=== PATIENT | female | born 1985 | race Caucasian/White ===

== ENCOUNTER → 2017-02-20 | Outpatient (CLI) | payer BC ==
[~2017-02-20] MED LIST: AFRI0.052 EACH NARE; VITA10007 PO
--- NOTE | 2017-02-20 22:08 | EKG ---
Date Performed: 02/20/2017 Time Performed: 12:37:44 PTAGE: 31 years EKG: Sinus rhythm WITH SINUS ARRHYTHMIA POSSIBLE LEFT ATRIAL ENLARGEMENT BORDERLINE ECG PREVIOUS TRACING : 11/30/2014 10.41 Compared to prior tracing no significant change DOCTOR: Adam Saha Interpretating Date/Time 02/20/2017 22:07:16
== END ==
LOC: HCAV 12:18
PROVIDERS: ATTEND Surgery
DX: Z01.810 Encounter for preprocedural cardiovascular examination (principal)
CPT/HCPCS: 93005

== ENCOUNTER 2017-05-16 05:49 | Inpatient (IN) | payer BC ==
[~2017-05-16] VITALS: Ht 165.1 cm; Wt 113.5 kg
[~2017-05-16 05:49] MED LIST changes: +FEXO15TA PO; -VITA10007 PO
[2017-05-16] MEDS ORDERED: LACTATED RINGER'S 1000 ML IV PRN (06:15)
[2017-05-16] MEDS ORDERED: ACETAMINOPHEN 1000 MG/100 ML 100 ML IV SCH ×2 (06:15→12:00)
[2017-05-16] MEDS ORDERED: POVIDONE IODINE 5% (ANTISEPSIS KIT) 4 APPLICATIONS EACH NARE PRN (06:15)
[2017-05-16] MEDS ORDERED: METOPROLOL TARTRATE 25 MG TAB PO PRN (06:15)
[2017-05-16] MEDS ORDERED: APREPITANT 40 MG CAP PO SCH (06:15)
[2017-05-16] MEDS ORDERED: ceFAZolin 2 GM PREMIX 50 ML IV SCH (06:15)
[2017-05-16] MEDS ORDERED: SODIUM CHLORID 0.9% 500 ML IV PRN (06:15)
[2017-05-16] MEDS ORDERED: CHLORHEXIDINE GLUCONATE 2 % 1 PACK (2 CLOTHS) TOPICAL PRN (06:15)
[2017-05-16] MEDS ORDERED: SCOPOLAMINE 1.5 MG PATCH T-DERMAL SCH (06:15)
[2017-05-16] MEDS: ONDANSETRON HCL 4 MG/2 ML VIAL IV PUSH SCH ×2 (06:48→15:34)
[2017-05-16] MEDS ORDERED: BUPIVACAINE/EPINEPHRINE 0.25% 50 ML VIAL ONE (07:17)
[2017-05-16] MEDS ORDERED: metroNIDAZOLE 500 MG INJ 100 ML IV ONE (07:50)
[2017-05-16] MEDS ORDERED: METHYLENE BLUE 100 MG/10 ML VIAL OTHER ONE (09:00)
--- NOTE | 2017-05-16 09:24 | HHI.PR ---
Immediate Post Op Note Procedure Date: May 16, 2017 Pre Op Diagnosis: morbid obesity bmi 44, preDM Post Op Diagnosis: same Surgeon: Lemuel Garnett MD Clearing Hand(s): Dr. Stephens Procedure: lap vertical sleeve gastrectomy Findings: no leak with methylene blue Complications: none Specimen(s) removed: none Estimated blood loss: 5cc Anesthesia: General Drains: None Patient to: PACU Patient Condition: Good Lemuel Garnett MD May 16, 2017 09:24
[2017-05-16] MEDS ORDERED: ONDANSETRON HCL 4 MG/2 ML VIAL IV PUSH PRN (09:30)
[2017-05-16] MEDS ORDERED: NALOXONE HCL 0.4 MG/ML AMP IV PUSH PRN (09:30)
[2017-05-16] MEDS ORDERED: Post-op Orders (for Pharmacy) OTHER ONE (09:30)
[2017-05-16] MEDS ORDERED: ACETAMINOPHEN 325MG/HYDROcodone 7.5MG/15ML UDC PO PRN (09:30)
[2017-05-16] MEDS ORDERED: SODIUM CHLORIDE 0.9% FLUSH 10 ML FLUSH IV FLUSH PRN (09:30)
[2017-05-16] MEDS ORDERED: ENALAPRILAT 1.25 MG/ML VIAL IV PUSH PRN (09:30)
[2017-05-16] MEDS ORDERED: DO NOT ADM ANY ANTICOAGULANT DRUGS PRN (09:33)
[2017-05-16] MEDS ORDERED: MIDAZOLAM HCL 2 MG/2 ML VIAL ONE (09:40)
[2017-05-16] MEDS ORDERED: SUGAMMADEX SODIUM 200 MG/2 ML VIAL IV PUSH ONE (09:41)
[2017-05-16] MEDS ORDERED: *morphine SULFATE 4 MG/ML PERIprocedure ONLY ONE ×2 (10:24→10:54)
[2017-05-16] MEDS: D5-1/2 NS + KCL 20 MEQ INJ 1,000 ML IV SCH ×2 (11:30→19:53)
[2017-05-16] MEDS ORDERED: diphenhydrAMINE HCL ELIXIR 12.5 MG/5 ML CUP PO PRN (11:30)
[2017-05-16] MEDS: PANTOPRAZOLE SOD 40 MG DELAYED RELEASE TAB PO SCH (11:30)
[2017-05-16] MEDS ORDERED: diphenhydrAMINE HCL 50 MG/ML VIAL IV PUSH PRN (11:30)
[2017-05-16] MEDS ORDERED: ONDANSETRON HCL 4 MG/2 ML VIAL IV PUSH ONE (12:00)
[2017-05-16] MEDS ORDERED: PROPOFOL 200 MG/20 ML AMP IV ONE (12:00)
[2017-05-16] MEDS ORDERED: LACTATED RINGER'S 1000 ML INJ 1,000 ML IV ONE (12:00)
[2017-05-16] MEDS ORDERED: DEXAMETHASONE SOD PHOS 4 MG/ML VIAL IV ONE (12:00)
[2017-05-16] MEDS ORDERED: ROCURONIUM INJ 50 MG/5 ML SYRINGE IV PUSH ONE (12:00)
[2017-05-16] MEDS ORDERED: LIDOCAINE HCL 1% PF 5 ML SYRINGE OTHER ONE (12:00)
[2017-05-16] MEDS: ACETAMINOPHEN 1000 MG/100 ML 100 ML IV SCH ×2 (12:48→18:16)
[2017-05-16] MEDS: MORPHINE SULFATE 30 MG/30 ML PCA IV SCH (12:50)
[2017-05-16 13:00] VITALS: BP 132/66; PULSE 72; RESP 17; TEMP 98.4; O2SAT 98
[2017-05-16] MEDS: PCA - TOTAL MG MORPHINE DELIVERED PER SHIFT SCH ×2 (14:00→21:47)
[2017-05-16] MEDS: ENOXAPARIN SODIUM 40 MG/0.4 ML SYRINGE SQ SCH (14:11)
[2017-05-16 16:00] VITALS: BP 116/58; PULSE 80; RESP 18; TEMP 98; O2SAT 97
[2017-05-16] MEDS: METOCLOPRAMIDE HCL 10 MG/2 ML VIAL IV PUSH SCH ×2 (16:00→21:47)
[2017-05-16] MEDS: SODIUM CHLORIDE 0.9% FLUSH 10 ML FLUSH IV FLUSH SCH (19:36)
[2017-05-16 20:00] VITALS: BP 113/58; PULSE 77; RESP 18; TEMP 98; O2SAT 96
[2017-05-17] VITALS: BP 101/52; PULSE 64; RESP 18; TEMP 98.2; O2SAT 96
[2017-05-17] MEDS: metroNIDAZOLE 500 MG INJ 100 ML IV SCH ×2 (00:08→08:08)
[2017-05-17] MEDS: ACETAMINOPHEN 1000 MG/100 ML 100 ML IV SCH ×2 (01:55→05:55)
[2017-05-17] MEDS: MORPHINE SULFATE 30 MG/30 ML PCA IV SCH (03:25)
[2017-05-17 04:00] VITALS: BP 104/54; PULSE 67; RESP 20; TEMP 98.7; O2SAT 97
[2017-05-17] MEDS: METOCLOPRAMIDE HCL 10 MG/2 ML VIAL IV PUSH SCH ×2 (04:28→09:13)
[2017-05-17] MEDS: D5-1/2 NS + KCL 20 MEQ INJ 1,000 ML IV SCH ×3 (05:54→19:30)
[2017-05-17] MEDS: PCA - TOTAL MG MORPHINE DELIVERED PER SHIFT SCH ×2 (05:57→14:00)
[2017-05-17 08:00] VITALS: BP 124/64; PULSE 73; RESP 19; TEMP 97.3; O2SAT 98
[2017-05-17] MEDS: PANTOPRAZOLE SOD 40 MG DELAYED RELEASE TAB PO SCH (08:07)
[2017-05-17] MEDS: SODIUM CHLORIDE 0.9% FLUSH 10 ML FLUSH IV FLUSH SCH ×2 (08:08→21:00)
[2017-05-17 08:42] LABS: AUTOMATED NEUTROPHIL # 7.4 TH/MM3 (1.8-7.7); BASOPHIL % 0.3 % (0.0-2.0); EOSINOPHIL % 0.2 % (0.0-4.0); HEMATOCRIT 37.5 % (35.0-46.0); HEMOGLOBIN 12.6 GM/DL (11.6-15.3); LYMPH % 18.9 % (9.0-44.0); LYMPHOCYTE # 1.9 TH/MM3 (1.0-4.8); MEAN CELL VOLUME 89.2 FL (80.0-100.0); MEAN CORPUSCULAR HGB CONC 33.7 % (32.0-36.0); MEAN PLATELET VOLUME 9.8 FL (7.0-11.0); MONO % 8.3 % (0.0-8.0); MONOCYTE # 0.8 TH/MM3 (0-0.9); NEUT % 72.3 % (16.0-70.0); PLATELET COUNT 186 TH/MM3 (150-450); RED CELL DISTRIBUTION WIDTH 12.8 % (11.6-17.2); WHITE BLOOD COUNT 10.2 TH/MM3 (4.0-11.0)
[2017-05-17 09:02] LABS: CREATININE 0.76 MG/DL (0.50-1.00); MAGNESIUM 2.2 MG/DL (1.5-2.5)
[2017-05-17] MEDS ORDERED: INFLUENZA VIRUS VACCINE (QUADRIVALENT) 0.5 ML SYR IM ONE (10:00)
[2017-05-17 12:00] VITALS: BP 127/69; PULSE 69; RESP 21; TEMP 98.4; O2SAT 99
[2017-05-17] MEDS ORDERED: HYOSCYAMINE SOLN 0.125 MG/ML 15 ML BTL PO PRN (12:00)
--- NOTE | 2017-05-17 12:11 | HHI.PR ---
Subjective Subjective Notes No GI complaints Tolerating PO fluids Pain well controlled Objective Vitals/I&O Vital Signs Date Time Temp Pulse Resp B/P (MAP) Pulse Ox O2 Delivery O2 Flow Rate FiO2 05/17/17 08:00 97.3 73 19 124/64 (84) 98 05/16/17 12:30 Nasal Cannula 2 Labs Laboratory Tests Test 05/17/17 06:00 White Blood Count 10.2 Red Blood Count 4.20 Hemoglobin 12.6 Hematocrit 37.5 Mean Corpuscular Volume 89.2 Mean Corpuscular Hemoglobin 30.0 Mean Corpuscular Hemoglobin Concent 33.7 Red Cell Distribution Width 12.8 Platelet Count 186 Mean Platelet Volume 9.8 Neutrophils (%) (Auto) 72.3 Lymphocytes (%) (Auto) 18.9 Monocytes (%) (Auto) 8.3 Eosinophils (%) (Auto) 0.2 Basophils (%) (Auto) 0.3 Neutrophils # (Auto) 7.4 Lymphocytes # (Auto) 1.9 Monocytes # (Auto) 0.8 Eosinophils # (Auto) 0.0 Basophils # (Auto) 0.0 CBC Comment DIFF FINAL Differential Comment Blood Urea Nitrogen 7 Creatinine 0.76 Random Glucose 118 Calcium Level 8.0 Magnesium Level 2.2 Sodium Level 139 Potassium Level 3.5 Chloride Level 107 Carbon Dioxide Level 23.0 Anion Gap 9 Estimat Glomerular Filtration Rate 88 Cardiovascular: Regular Lungs: Clear Abdomen: Post-op tenderness Extremities: Perfused Wound Wound : Wound Location: Abdomen Appearance: Clean & Dry A/P Assessment and Plan 31yo F POD#1 laparoscopic VSG -Continue with frequent ambulation -Continue to increase fluids as tolerated Discharge Planning D/C home today Natalia Madrigal May 17, 2017 12:11
[2017-05-17] MEDS: ENOXAPARIN SODIUM 40 MG/0.4 ML SYRINGE SQ SCH (14:14)
[2017-05-17] MEDS: METOCLOPRAMIDE HCL 10 MG/2 ML VIAL IV PUSH PRN ×2 (14:14→20:02)
[2017-05-17] MEDS ORDERED: PROMETHAZINE HCL 25 MG SUPP RECTAL PRN (15:30)
[2017-05-17 16:00] VITALS: BP 130/74; PULSE 73; RESP 19; TEMP 98.7; O2SAT 98
[2017-05-17 20:00] VITALS: BP 133/74; PULSE 80; RESP 18; TEMP 98.6; O2SAT 98
[2017-05-17] MEDS: ACETAMINOPHEN 325MG/HYDROcodone 7.5MG/15ML UDC PO PRN (20:03)
[2017-05-18] VITALS: BP 121/64; PULSE 82; RESP 18; TEMP 98.4; O2SAT 97
[2017-05-18] MEDS: METOCLOPRAMIDE HCL 10 MG/2 ML VIAL IV PUSH PRN (03:26)
[2017-05-18] MEDS: ACETAMINOPHEN 325MG/HYDROcodone 7.5MG/15ML UDC PO PRN (03:27)
[2017-05-18] MEDS: PANTOPRAZOLE SOD 40 MG DELAYED RELEASE TAB PO SCH (07:43)
[2017-05-18] MEDS: SODIUM CHLORIDE 0.9% FLUSH 10 ML FLUSH IV FLUSH SCH (07:43)
[2017-05-18] MEDS: D5-1/2 NS + KCL 20 MEQ INJ 1,000 ML IV SCH (07:45)
[2017-05-18 08:00] VITALS: BP 132/82; PULSE 82; RESP 17; TEMP 97.5; O2SAT 98
[2017-05-18] MEDS ORDERED: IOHEXOL 350 MG/ML 10 ML VIAL (for RAD DIAG) IVCONTRAST ONE (10:35)
--- NOTE | 2017-05-18 10:48 | RADRPT ---
EXAM DATE/TIME: 05/18/2017 10:27 [facility] COMPARISON: No previous studies available for comparison. INDICATIONS : Left dilated pupil, loss of vision IV CONTRAST: 68 cc Omnipaque 350 (iohexol) IV RADIATION DOSE: 37.99 CTDIvol (mGy) MEDICAL HISTORY : Hypertension. diabetes SURGICAL HISTORY : gastric sleeve ENCOUNTER: Initial ACUITY: 1 day PAIN SCALE: 0/10 LOCATION: Left cranial TECHNIQUE: Multiple contiguous axial images were obtained of the head. Using automated exposure control and adj ustment of the mA and/or kV according to patient size, radiation dose was kept as low as reasonably a chievable to obtain optimal diagnostic quality images. DICOM format image data is available electro nically for review and comparison. FINDINGS: CEREBRUM: The ventricles are normal for age. No evidence of midline shift, cerebral edema or blood products. No extra-axial fluid collections are seen. POSTERIOR FOSSA: The cerebellum and brainstem are intact. The 4th ventricle is midline. The cerebellar pontine angle is unremarkable. EXTRACRANIAL: The visualized portion of the orbits is intact. Minimal mucoperiosteal thickening in the ethmoid sinu s air cells and sphenoid sinus. SKULL: The calvaria is intact. No evidence of skull fracture. POST CONTRAST: No abnormal areas of parenchymal or dural enhancement. No evidence of blood-brain barrier breakdown. CONCLUSION: Intracranially negative. Minimal mucoperiosteal thickening sphenoid sinus and ethmoid air cells Real Blackwell MD on May 18, 2017 at 10:44 Board Certified Radiologist. This report was verified electronically.
--- NOTE | 2017-05-18 11:40 | HHI.PR ---
Subjective Subjective Notes Patient was initially going to be discharged then rapidly developed profound dilation of left pupil with loss/blurry vision. She denies headache but does have some lingering nausea. BP is well controlled. CT head was negative. Objective Vitals/I&O Vital Signs Date Time Temp Pulse Resp B/P (MAP) Pulse Ox O2 Delivery O2 Flow Rate FiO2 05/18/17 08:00 97.5 82 17 132/82 (99) 98 05/16/17 12:30 Nasal Cannula 2 Radiology Last Impressions Head CT 05/18/17 0000 Signed Impressions: Service Date/Time: Thursday, May 18, 2017 10:27 - CONCLUSION: Intracranially negative. Minimal mucoperiosteal thickening sphenoid sinus and ethmoid air cells Real Blackwell MD Cardiovascular: Regular Lungs: Clear Abdomen: Post-op tenderness Extremities: Perfused Narrative Exam Left pupil 6mm, right pupil 3mm, EOM intact. A/P Assessment and Plan -31yo F POD#2 laparoscopic VSG -STAT CT neg, STAT MRI and neuro consult -STAT CBC Discharge Planning Depending on hospital course Natalia Madrigal May 18, 2017 11:40
[2017-05-18 12:00] VITALS: BP 126/80; PULSE 75; RESP 17; TEMP 97.6; O2SAT 99
--- NOTE | 2017-05-18 12:00 | MP ---
cc: MARY JO GARNETT MD DATE OF SURGERY: 05/16/2017. PREOPERATIVE DIAGNOSIS: 1. Morbid obesity with a BMI of 44. 2. Pre-diabetes. POSTOPERATIVE DIAGNOSIS: 1. Morbid obesity with a BMI of 44. 2. Pre-diabetes. PROCEDURE PERFORMED: Laparoscopic sleeve gastrectomy. SURGEON Dr. Mary Jo Garnett. [employer] PROFESSOR: Amanuel Stephens MD. (Dr. Stephens was needed due to the complexity of the laparoscopic case. Dr. Stephens assisted with camera control and retraction and facilitation). ANESTHESIA: GETA. IV FLUIDS: See anesthesia sheet ESTIMATED BLOOD LOSS 10 mL. DRAINS: None. COMPLICATIONS: None. WOUND CLASSIFICATION: Clean / contaminated. SPECIMENS: None. INDICATIONS FOR THE PROCEDURE: The patient is a 31-year-old female who presents with morbid obesity and multiple attempts at weight loss without success. Decision was made for a sleeve gastrectomy in a patient with a BMI of 44 and pre-diabetes. Discussed with the patient in detail. DESCRIPTION OF THE PROCEDURE IN DETAIL: The patient was taken to the operating room suite and placed in the supine position. She was prepped and draped in the usual sterile fashion after induction with general endotracheal anesthesia. A brief time out was done stating the correct patient, procedure and surgical site and we were all in agreement with this. Attention first directed 15 cm distal to the xyphoid. Local anesthetic injected and a stab kalina incision made with an 11-blade. Visiport 5-mm OptiVu was used to enter the abdomen safely under direct visualization. Abdomen insufflated to 50 mmHg pneumoperitoneum. On cursory inspection no evidence of injury. Several other ports were placed including a right upper quadrant liver retractor port 5 mm followed by a 15 mm right lower quadrant port. Two other left lower quadrant ports 5 mm were placed under direct visualization. The patient was placed in reverse Trendelenburg and planed to the right. The vasculature of the greater curvature stomach was taken to using the Harmonic scalpel starting 5 cm proximal to the pylorus towards the angle of His. The posterior ligamentous attachments were taken sharply and dissected. This was done up to the GE junction. A 36-Maori ViSiGi bougie was then advanced down the pylorus and placed to suction. Division of the stomach to create the sleeve gastrectomy was done 5 cm proximal pylorus and toward the angle of His and approximately 1 cm from the GE junction staple line. This was done with the Endo DALTON stapler black loads followed by gold loads and then green loads. This was all with reinforced Seamguard. Next, methylene blue was instilled x2 syringes, 60 cc each, without evidence of leaking. Next the gastrocolic ligament was sutured to a leaflet of the Seamguard with a running #2 V-lock suture. Next Evicel was then placed. The stomach was removed from the 15 mm right lower quadrant port site. The pneumoperitoneum was released after closure of the 15 mm port site with #0 Vicryl in the suture-passer. 4-0 Monocryl sutures were used to close the subcuticular incisions followed by sterile dressings including Mastisol and Steri-Strips. The patient was extubated and taken to the post-anesthesia care unit. All lap and instrument counts were correct. No intraoperative complications. MD LEROY Yeager/YOLI /9:25 PM /11:32 AM
[2017-05-18 13:00] LABS: AUTOMATED NEUTROPHIL # 5.9 TH/MM3 (1.8-7.7); BASOPHIL % 0.5 % (0.0-2.0); EOSINOPHIL # 0.3 TH/MM3 (0-0.4); EOSINOPHIL % 3.3 % (0.0-4.0); HEMATOCRIT 42.1 % (35.0-46.0); HEMOGLOBIN 14.5 GM/DL (11.6-15.3); LYMPH % 26.8 % (9.0-44.0); LYMPHOCYTE # 2.6 TH/MM3 (1.0-4.8); MEAN CELL VOLUME 88.7 FL (80.0-100.0); MEAN CORPUSCULAR HEMOGLOBIN 30.5 PG (27.0-34.0); MEAN CORPUSCULAR HGB CONC 34.4 % (32.0-36.0); MEAN PLATELET VOLUME 9.7 FL (7.0-11.0); MONO % 7.2 % (0.0-8.0); MONOCYTE # 0.7 TH/MM3 (0-0.9); NEUT % 62.2 % (16.0-70.0); PLATELET COUNT 226 TH/MM3 (150-450); RED BLOOD COUNT 4.75 MIL/MM3 (4.00-5.30); RED CELL DISTRIBUTION WIDTH 12.8 % (11.6-17.2); WHITE BLOOD COUNT 9.5 TH/MM3 (4.0-11.0)
[2017-05-18] MEDS ORDERED: GADODIAMIDE PF 287 MG/ML 5 ML VIAL (for RAD MRI) IVCONTRAST ONE (13:17)
[2017-05-18] MEDS: ENOXAPARIN SODIUM 40 MG/0.4 ML SYRINGE SQ SCH (13:20)
--- NOTE | 2017-05-18 14:24 | MB ---
cc: ANIYA DAWKINS M.D. DATE OF CONSULTATION: 05/18/2017. HISTORY OF PRESENT ILLNESS: A 31-year-old right-handed woman with gestational hypertension, borderline diabetes, hypercholesterolemia who recently just on Sunday had a sleeve placed on her stomach. She had a scopolamine patch behind the left ear placed before that and then yesterday she was watching TV and looking at her phone. She had some blurriness in her vision and today was noted to have a dilated pupil on the left, and I have been asked to see her for the same. SOCIAL HISTORY: Nonsmoker, nondrinker lives with her . FAMILY HISTORY: She is adopted. REVIEW OF SYSTEMS: Denies any myocardial infarction, CABG, stents, angioplasty, atrial fibrillation, coumadin, renal, hepatic, or pulmonary disease, thyroid disease, lupus, ulcer, cancer, seizure or stroke or headache. MEDICATIONS: 1. She got some PRN Phenergan suppositories. 2. Reglan. 3. Lovenox subcutaneous 40 q. 24 hours. 4. Protonix. 5. Hydrocodone PRN. 6. Zofran PRN. 7. Scopolamine patch. PHYSICAL EXAMINATION: VITAL SIGNS: On exam, afebrile, 75, 17, 126/80. HEAD, EYES, EARS, NOSE, THROAT: There were no ocular bruits. NECK: There were no carotid bruits. No vertebral bruits. HEART: Regular rhythm. I do not detect a murmur. NEUROLOGICAL EXAMINATION: The right pupil is about 3 mm and the left is about 4.5 and minimally reactive. She is 20/200 visual acuity on the left and 20/30 on the right. Extraocular movements intact. She has a little bit of fine nystagmus on looking to the right but extraocular movements were intact in the left eye specifically. There is no ptosis. Face is symmetric with normal sensation. Tongue was midline. There is no drift. She had normal strength in upper and lower extremities bilaterally. DTRs are 1+ symmetric throughout. Toes are downgoing bilaterally. Pin prick is intact throughout. She is not ataxic on [id number]. Speech is fluent. She is not aphasic. LABORATORY DATA: CBC is normal. Basic metabolic profile was normal. IMAGING STUDIES: She had a CT scan of her brain done today which was read as normal. She had MRI of the brain done and the results are pending. No diffusion abnormality is noted. FLAIR images are normal. The orbits preliminary look intact. I thought her discs looked sharp bilaterally, although could not get a good look on either side as I would have liked in general. IMPRESSION: I think likely she has anisocoria and the left pupil is dilated because she probably got some of the scopolamine patch on her hands and then wiped it in her eye. I do want to check just an MRA of the [place] of [place] and an MRA of the neck to make sure there is no carotid dissection or other abnormality or aneurysm and I would recommend having ophthalmology see her, but I think will take off the scopolamine patch and clean her hands and the nurse's hands and this probably will resolve on its own. MD ERIC Mosqueda/YOLI /1:43 PM /1:52 PM
--- NOTE | 2017-05-18 14:30 | RADRPT ---
EXAM DATE/TIME: 05/18/2017 12:53 [facility] COMPARISON: No previous studies available for comparison. INDICATIONS : Unequal pupils with cloudy vision in the left eye. CONTRAST: 22 cc Omniscan (gadodiamide) IV MEDICAL HISTORY : Diabetes mellitus type 2. Hypertension. SURGICAL HISTORY : section. facial reconstruction, ORIF Lt arm, gastric sleeve ENCOUNTER: Initial ACUITY: 1 day PAIN SCORE: 0/10 LOCATION: cranial TECHNIQUE: Multiplanar, multisequence MRI of the brain was performed both prior to and following the administrat ion of paramagnetic contrast. FINDINGS: CEREBRUM: The ventricles are normal for age. No evidence of midline shift, mass lesion, hemorrhage or acute in farction. No extraaxial fluid collections are seen. The pituitary gland and suprasellar cistern are normal in configuration. WHITE MATTER: No significant signal abnormalities are seen in the white matter. POSTERIOR FOSSA: The cerebellum and brainstem are intact. The 4th ventricle is midline. The cerebellopontine angle is unremarkable. The cerebellar tonsils are normal in position. DIFFUSION IMAGING: No focal areas of restricted diffusion are seen. No evidence of acute infarction. EXTRACRANIAL: The visualized portions of the orbits and paranasal sinuses are unremarkable. POST-CONTRAST: No abnormal areas of parenchymal or dural enhancement. No evidence of blood-brain barrier breakdown. CONCLUSION: 1. Negative examination. Derrek Muniz MD on May 18, 2017 at 14:25 Board Certified Radiologist. This report was verified electronically.
--- NOTE | 2017-05-18 15:02 | RADRPT ---
EXAM DATE/TIME: 05/18/2017 12:53 [facility] COMPARISON: MRI BRAIN W & W/O CONTRAST, May 18, 2017, 12:53. CT BRAIN W & W/O CONTRAST, May 18, 2017, 1 0:27. INDICATIONS : Aneurysm. MEDICAL HISTORY : Diabetes mellitus type 2. Hypertension. SURGICAL HISTORY : section. facial reconstruction, ORIF Lt arm, gastric sleeve ENCOUNTER: Subsequent ACUITY: 1 day PAIN SCORE: 0/10 LOCATION: cranial Please note a normal MRA of the brain does not entirely exclude the possibility of a small aneurysm, nor the possibility of distal intracranial vessel disease. TECHNIQUE: 3D time of flight MRA was performed. Source images, multiplanar STS MIP, and 3D volume MIP reconstru ctions were reviewed. FINDINGS: There is excellent visualization of the major intracranial arteries out to the second-order branch ve ssels. There is no evidence for aneurysm, vessel truncation or stenosis, and no evidence for vascula r malformation. CONCLUSION: Normal examination. Real Blackwell MD on May 18, 2017 at 14:56 Board Certified Radiologist. This report was verified electronically.
--- NOTE | 2017-05-18 15:34 | RADRPT ---
EXAM DATE/TIME: 05/18/2017 14:47 [facility] COMPARISON: MRI BRAIN W & W/O CONTRAST, May 18, 2017, 12:53. INDICATIONS : CVA. CONTRAST: 20 cc Omniscan (gadodiamide) IV MEDICAL HISTORY : Diabetes mellitus type 2. Hypertension. SURGICAL HISTORY : section. facial reconstruction, ORIF Lt arm, gastric sleeve ENCOUNTER: Subsequent ACUITY: 1 day PAIN SCORE: 0/10 LOCATION: cranial Percent stenosis is calculated using the diameter of the stenotic region over the diameter of the nor mal distal internal carotid artery. TECHNIQUE: Bolus infused MRA of the extracranial circulation was performed using a neurovascular coil. Post pro cessing was performed including rotating subvolume maximum intensity projections of each carotid bessie ry, rotating full volume maximum intensity projections of both carotid arteries, sagittal and coronal sliding thin slab reformations of each carotid artery, and left oblique sliding thin slab reformatio n through the aortic arch to include the origin of the arch branch vessels. FINDINGS: AORTIC ARCH: There is a three vessel origin of the great vessels from the aorta. No evidence of ostial narrowing. RIGHT CAROTID: The common carotid artery is intact. The carotid bulb has a normal configuration without ulceration or narrowing. The internal carotid artery lumen is smooth without stenosis. The external carotid ar marielle is intact. LEFT CAROTID: The common carotid artery is intact. The carotid bulb has a normal configuration without ulceration or narrowing. The internal carotid artery lumen is smooth without stenosis. The external carotid ar marielle is intact. VERTEBRALS: The vertebral arteries have a symmetric diameter. No stenotic lesions are seen. CONCLUSION: Normal examination. Travon Alvarado MD on May 18, 2017 at 15:30 Board Certified Radiologist. This report was verified electronically.
[2017-05-18 16:00] VITALS: BP 127/82; PULSE 90; RESP 17; TEMP 97.4; O2SAT 98
== END 2017-05-18 18:44 | disposition home or self-care (01) | DRG 621 ==
LOC: HSDI 05:49 → N07A 13:05
PROVIDERS: ADMIT Surgery; ATTEND Surgery
PROC: 0DB64Z3 Excision of Stomach, Percutaneous Endoscopic Approach, Vertical (ICD-10-PCS; principal; 2017-05-16 07:42)
DX: E66.01 Morbid (severe) obesity due to excess calories (principal); E78.5 Hyperlipidemia, unspecified; H57.02 Anisocoria; H57.04 Mydriasis; R73.03 Prediabetes; Z68.41 Body mass index [BMI] 40.0-44.9, adult; R11.0 Nausea; J45.909 Unspecified asthma, uncomplicated; M51.36 Other intervertebral disc degeneration, lumbar region; Z23 Encounter for immunization
CPT/HCPCS: 70470; 70544; 70548; 70553; 80048; 82948; 83735; 85025; 85652; 90686; 94150; A9579; J0131; J0690; J1100; J1650; J2250; J2270; J2405; J2765; J3010; J3480; J7120; J8501; Q2038; Q9967